=== PATIENT | female | born 1990 | race Two or more races ===

== ENCOUNTER 2023-10-22 21:25 | Inpatient (IN) | payer OTHER ==
[2023-10-22 22:01] VITALS: BMI 25.5
[2023-10-22] MEDS ORDERED: MAG HYDROX/AL HYDROX/SIMETH 30 ML UNIT-DOSE CUP PO PRN (22:37)
[2023-10-22] MEDS ORDERED: BENZOCAINE/MENTHOL (CHLORASEPTIC ) LOZENGE MM PRN (22:37)
[2023-10-22] MEDS ORDERED: chlordiazePOXIDE HCL 25 MG CAPSULE PO PRN (22:37)
[2023-10-22] MEDS ORDERED: NALOXONE HCL 0.4 MG/ML VIAL IM PRN (22:37)
[2023-10-22] MEDS ORDERED: DICYCLOMINE HCL 10 MG CAPSULE PO PRN (22:37)
[2023-10-22] MEDS ORDERED: ONDANSETRON *ODT* 4 MG TABLET SL PRN (22:37)
[2023-10-22] MEDS ORDERED: NALOXONE HCL (KLOXXADO) 8 MG SPRAY NS PRN (22:37)
[2023-10-22] MEDS ORDERED: POLYETHYLENE GLYCOL (HEALTHYLAX) 3350 17 GM PACKET PO PRN (22:37)
[2023-10-22] MEDS ORDERED: MAGNESIUM HYDROX 2400MG/30ML ORAL SUSPENSION 30 ML CUP PO PRN (22:37)
[2023-10-22] MEDS ORDERED: BISMUTH SUBSALICYLATE 524 MG/30 ML PO PRN (22:37)
[2023-10-22] MEDS ORDERED: BENZONATATE 200 MG CAPSULE PO PRN (22:37)
[2023-10-22] MEDS ORDERED: IBUPROFEN 600 MG TABLET (FP) PO PRN (22:37)
[2023-10-22] MEDS ORDERED: LOPERAMIDE HCL 2 MG CAPSULE PO PRN (22:37)
[2023-10-22] MEDS ORDERED: NICOTINE POLACRILEX 2 MG GUM BUC PRN (22:37)
[2023-10-22] MEDS ORDERED: ACETAMINOPHEN 325 MG TABLET (FP) PO PRN (22:37)
[2023-10-22] MEDS ORDERED: IBUPROFEN 400 MG TABLET (FP) PO PRN (22:37)
[2023-10-22] MEDS ORDERED: guaiFENesin 600 MG TABLET.ER (FP) PO PRN (22:37)
[2023-10-22] MEDS ORDERED: chlordiazePOXIDE HCL 25 MG CAPSULE ONE (22:49)
[2023-10-22] MEDS: chlordiazePOXIDE HCL 25 MG CAPSULE PO SCH (22:59)
[2023-10-23] MEDS: chlordiazePOXIDE HCL 25 MG CAPSULE PO SCH ×4 (05:44→22:15)
[2023-10-23] MEDS: PRENATAL VITAMINS W/ FOLIC ACID TABLET (FP) PO SCH (10:14)
[2023-10-23] MEDS: NICOTINE 14 MG/24 HOURS TOPICAL PATCH TD SCH (10:16)
[2023-10-23 13:13] LABS: HEMOGLOBIN 11.3 GM/dL (10.7-15.3); MCH 27.7 pg (25.7-33.7); MCHC 33.1 g/dl (32.0-36.0); MEAN CELL VOLUME 83.6 fl (80-96); MEAN PLT VOLUME 8.4 fl (7.5-11.1); PLATELET COUNT 194 10^3/uL (134-434); RBC 4.06 M/mm3 (3.60-5.2); RDW 16.7 % (11.6-15.6); WHITE BLOOD COUNT 4.2 K/mm3 (4.0-10.0)
[2023-10-23 13:23] LABS: CHLORIDE 97 mmol/L (98-107); POTASSIUM 3.4 mmol/L (3.5-5.1); SODIUM 136 mmol/L (136-145)
[2023-10-23 13:35] LABS: BLOOD UREA NITROGEN 4.8 mg/dL (7-18); CALCIUM 8.2 mg/dL (8.5-10.1); GLUCOSE,RANDOM 101 mg/dL (74-106)
[2023-10-23 13:36] LABS: ALBUMIN 3.8 g/dl (3.4-5.0); ANION GAP 11 mmol/L (4-13); CO2 28 mmol/L (21-32)
[2023-10-23 13:38] LABS: SGPT/ALT 63 U/L (13-61)
[2023-10-23 13:39] LABS: CREATININE 0.7 mg/dL (0.55-1.3); SGOT/AST 259 U/L (15-37)
[2023-10-23 13:40] LABS: BILIRUBIN,TOTAL 1.2 mg/dL (0.2-1); TOT PROT 7.8 g/dl (6.4-8.2)
[2023-10-23 13:41] LABS: ALK PHOS 80 U/L (45-117)
[2023-10-23 15:02] LABS: EPI CELLS >36 /uL (0-25.1); HYALINE CASTS 0 /uL (0-3.1); PH,URINE 8.5 (5.0-8.0); URINE APPEARANCE CLOUDY; URINE BACTERIA 1342 /uL (0-1359); URINE BILIRUBIN NEGATIVE (NEGATIVE); URINE COLOR YELLOW; URINE GLUCOSE (UA) NEGATIVE (NEGATIVE); URINE KETONE NEGATIVE (NEGATIVE); URINE LEUK ESTERASE NEGATIVE (NEGATIVE); URINE NITRITE NEGATIVE (NEGATIVE); URINE PROTEIN NEGATIVE (NEGATIVE); URINE RBC 65 /uL (0-23.9); URINE WBC 10 /uL (0-25.8)
[2023-10-23] MEDS: MELATONIN 5 MG TABLETS PO SCH (22:15)
[2023-10-23] MEDS: THIAMINE HCL 100 MG TABLET (FP) PO SCH (22:15)
[2023-10-24] MEDS: chlordiazePOXIDE HCL 25 MG CAPSULE PO SCH ×4 (05:18→22:26)
[2023-10-24] MEDS: PRENATAL VITAMINS W/ FOLIC ACID TABLET (FP) PO SCH (10:15)
[2023-10-24] MEDS: NICOTINE 14 MG/24 HOURS TOPICAL PATCH TD SCH (10:15)
[2023-10-24] MEDS ORDERED: POTASSIUM CHLORIDE ORAL LIQUID 20 MEQ/15 ML PO ONE (16:10)
[2023-10-24] MEDS: MELATONIN 5 MG TABLETS PO SCH (22:26)
[2023-10-24] MEDS: THIAMINE HCL 100 MG TABLET (FP) PO SCH (22:26)
[2023-10-25] MEDS ORDERED: chlordiazePOXIDE HCL 10 MG CAPSULE PO PRN
[2023-10-25] MEDS: chlordiazePOXIDE HCL 10 MG CAPSULE PO SCH ×4 (05:19→22:20)
[2023-10-25] MEDS: NICOTINE 14 MG/24 HOURS TOPICAL PATCH TD SCH (10:04)
[2023-10-25] MEDS: PRENATAL VITAMINS W/ FOLIC ACID TABLET (FP) PO SCH (10:04)
[2023-10-25] MEDS: hydrOXYzine PAMOATE 25 MG CAPSULE (FP) PO PRN (14:02)
[2023-10-25] MEDS: MELATONIN 5 MG TABLETS PO SCH (22:20)
[2023-10-25] MEDS: THIAMINE HCL 100 MG TABLET (FP) PO SCH (22:20)
[2023-10-26] MEDS: chlordiazePOXIDE HCL 10 MG CAPSULE PO SCH ×2 (05:13→17:09)
[2023-10-26] MEDS: NICOTINE 14 MG/24 HOURS TOPICAL PATCH TD SCH (10:04)
[2023-10-26] MEDS: hydrOXYzine PAMOATE 25 MG CAPSULE (FP) PO PRN (10:05)
[2023-10-26] MEDS: PRENATAL VITAMINS W/ FOLIC ACID TABLET (FP) PO SCH (10:05)
[2023-10-26] MEDS: CALCIUM CARBONATE 650 MG TABLET PO SCH (22:18)
[2023-10-26] MEDS: THIAMINE HCL 100 MG TABLET (FP) PO SCH (22:18)
[2023-10-26] MEDS: MELATONIN 5 MG TABLETS PO SCH (22:18)
[2023-10-27] MEDS ORDERED: chlordiazePOXIDE HCL 10 MG CAPSULE PO ONE (05:00)
[2023-10-27 09:28] VITALS: BP 120/85; PULSE 90; RESP 16; TEMP 96.9
[2023-10-27] MEDS: CALCIUM CARBONATE 650 MG TABLET PO SCH (10:05)
[2023-10-27] MEDS: PRENATAL VITAMINS W/ FOLIC ACID TABLET (FP) PO SCH (10:05)
[2023-10-27] MEDS: NICOTINE 14 MG/24 HOURS TOPICAL PATCH TD SCH (10:06)
== END 2023-10-27 11:10 | disposition home or self-care (01) | DRG 775 ==
LOC: YASAS 21:25 → Y3N 23:28
PROVIDERS: ADMIT Allergy & Immunology; ATTEND Surgery
PROC: HZ2ZZZZ Detoxification Services for Substance Abuse Treatment (ICD-10-PCS; principal; 2023-10-22)
DX: F10.230 Alcohol dependence with withdrawal, uncomplicated (principal); F17.210 Nicotine dependence, cigarettes, uncomplicated; F19.24 Other psychoactive substance dependence with psychoactive substance-induced mood disorder; E87.6 Hypokalemia; E83.51 Hypocalcemia; L30.9 Dermatitis, unspecified; R74.01 Elevation of levels of liver transaminase levels; R26.89 Other abnormalities of gait and mobility
CPT/HCPCS: 36415; 80053; 80307; 81003; 81025; 85027; 86780; 87635; 93005; 93010